=== PATIENT | male | born 1970 | race Caucasian/White ===

== ENCOUNTER 2017-11-25 12:21 | Emergency (ER) | payer SELFPAY ==
[2017-11-25 14:16] VITALS: BP 129/93
== END 2017-11-25 14:17 | disposition home or self-care (01) | DRG 607 ==
LOC: ED 12:21
DX: L55.0 Sunburn of first degree (principal); R22.0 Localized swelling, mass and lump, head; R51 Headache; Y93.11 Activity, swimming; Y92.007 Garden or yard of unspecified non-institutional (private) residence as the place of occurrence of the external cause